=== PATIENT | male | born 1990 | race Two or more races ===

== ENCOUNTER → 2023-01-20 09:09 | Outpatient (BNVA) | payer OTHER, SELFPAY | PROVIDERS: PCP Internal Medicine; Visit Provider Physician Assistant Surgical ==

== ENCOUNTER 2023-02-18 11:04 | Outpatient (REF) | payer OTHER, SELFPAY ==
[2023-02-18 12:35] LABS: MANUAL DIFF FLAG NO
[2023-02-18 12:42] LABS: Basophils Percent Auto 0.2 % (0-2); Eosinophils Percent Auto 0.2 % (0-4); Hematocrit 39.9 % (42.0-52.0); Hemoglobin 13.7 g/dl (14.0-18.0); Imm Gran Abs Auto 0.08 X10*3/uL (0.00-0.03); Imm Gran Pct Auto 1.3 % (0.0-0.4); Lymphocytes Absolute Auto 1.8 X10*3/uL (1.2-4.9); Lymphocytes Percent Auto 28.3 % (20-40); Mean Corpuscular HGB Conc 34.3 g/dl (31.0-36.0); Mean Corpuscular Hemoglobin 31.4 pg (27.0-33.0); Mean Corpuscular Volume 91.3 fL (80.0-98.0); Mean Platelet Volume 10.3 fL (9.4-12.4); Monocytes Absolute Auto 0.5 X10*3/uL (0.1-1.2); Monocytes Percent Auto 7.4 % (2-11); Neutrophils Percent Auto 62.6 % (45-73); Platelet Count 229 X10*3/uL (160-400); Red Blood Count 4.37 X10*6/uL (4.60-5.80); Red Cell Distribution Width 12.4 % (11.0-16.0); White Blood Count 6.4 X10*3/uL (4.8-10.8)
[2023-02-18 13:00] LABS: Estimated Average Glucose 117 mg/dL; Hemoglobin A1c % 5.7 %
[2023-02-18 13:43] LABS: Alanine Aminotransferase 149 U/L (0-40); Albumin Level 4.6 g/dL (3.5-5.0); Alkaline Phosphatase 74 U/L (39-117); Anion Gap 10 (12-20); Aspartate Amino Transferase 86 U/L (5-37); Bilirubin Total 0.6 mg/dL (0.0-1.0); Blood Urea Nitrogen 8 mg/dL (9-16); C Reactive Protein 1.11 mg/dL (< or = 0.50); Calcium 9.9 mg/dL (8.4-10.2); Carbon Dioxide 30 mmol/L (22-29); Chloride 102 mmol/L (96-108); Cholesterol 213 mg/dL; Estimated Glomerular Filt Rate > 60; Glucose Random 103 mg/dL (60-115); HDL Cholesterol 37 mg/dL; Iron 111 mcg/dL (45-160); LDL Cholesterol Calculated 133 mg/dl; Percent Iron Saturation 30 % (15-50); Potassium 4.2 mmol/L (3.3-5.1); Sodium 138 mmol/L (135-145); Total Iron Binding Capacity 368 mcg/dL (228-428); Total Protein 8.1 g/dL (6.5-8.0); Triglycerides 219 mg/dL; Unsaturated Iron Binding 257 ug/dL
[2023-02-18 13:52] LABS: Ferritin 224 ng/mL (20-250); Insulin 27 uU/mL (2-29); Vitamin D 25-OH Total 18.7 ng/mL (>30)
[2023-02-18 14:03] LABS: Folate 14.5 ng/mL (> or = 4.0); Vitamin B12 631 pg/mL (200-900)
[2023-02-18 14:26] LABS: Free T4 (Free Thyroxine) 1.17 ng/dL (0.71-1.85)
[2023-02-22 19:13] LABS: Zinc 81 mcg/dL (60-130)
[2023-02-23 10:28] LABS: Vitamin B1 11 nmol/L (8-30)
[2023-02-24 14:58] LABS: Calcium (PTHI) 9.5 mg/dL (8.6-10.3); PTHI 75 pg/mL (16-77)
[2023-02-26 04:08] LABS: Vitamin A 47 mcg/dL (38-98)
== END 2023-02-18 11:05 | disposition home or self-care (01) ==
LOC: HO.LAB 11:04
PROVIDERS: PCP Internal Medicine; Visit Provider Physician Assistant Surgical
DX: E66.01 Morbid (severe) obesity due to excess calories (principal); Z71.3 Dietary counseling and surveillance; Z87.891 Personal history of nicotine dependence
CPT/HCPCS: 36415; 80053; 80061; 82306; 82607; 82728; 82746; 83036; 83525; 83540; 83970; 84425; 84439; 84443; 84590; 84630; 85025; 86140; 99202

== ENCOUNTER 2023-02-18 11:04 | Outpatient (AMB) | payer OTHER, SELFPAY ==
--- NOTE | 2023-02-18 11:05 | A.OFFVIS_ITS ---
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 He heard about the program on the internet. His goal is to lose weight and achieve a healthy lifestyle as well as to improve, if not resolve, obesity related medical conditions, including yaneth. He reports first being concerned about his weight 2 years ago, highest weight to date was 245. Current weight is 245.2 with a BMI of 42.1. He has tried multiple methods of weight loss including fad diets, exercise without permanent results. He lives with and kids. 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 He wakes at:?7 am, and goes to bed at?1130 pm. Dinner is at 5 pm. Breakfast: skip or toast, eggs, or sandwich or cereal (apple jacks or fruity jesus manuel w 2 % milk) AM snack: skip Lunch: sandwich, ham/cheese/salami, fast food PM snack: fruit, chips Dinner: rice beans, chicken, pork After dinner: chips, yogurt Other snacks: cookies Liquids: 96 oz water, 40 oz coke 4 days per week, 8 oz OJ daily Alcohol/marijuana/tobacco intake: none (8.5 years clean, previously opiate addiction) Exercise: none, [employer] gym membership GERD score: 22 RADHA score: 0 ESS score: 12 QOL score: 70 PFSH Surgical History No history of previous surgery Family History Mother Thyroid condition Father No problems noted. Brother No problems noted. Sister No problems noted. Sister No problems noted. Sister No problems noted. Sister No problems noted. Son No problems noted. Son No problems noted. Son No problems noted. Daughter No problems noted. Social History Alcohol intake: never Patient Tobacco Use Status: Former Tobacco user Review of Systems Const All systems reviewed & are unremarkable except as noted in HPI and below Physical Exam Const General: cooperative, healthy appearing and no acute distress Orientation/consciousness: patient oriented x3 HEENT Head: Yes normal to inspection Ears: hearing grossly normal bilaterally General nose exam: Normal external nose present Face and sinus: Yes normal facial exam Eyes General: appearance normal, both eyes and all related structures Resp Effort & Inspection: normal respiratory effort Auscultation: clear to auscultation bilaterally Cardio Rate: regular rate Rhythm: regular rhythm Heart sounds: S1 normal heart sound present and S2 normal heart sound present GI Inspection: Yes normal to inspection, No distended and Yes obesity Palpation (GI): Soft to palpation, nontender and no guarding Auscultation: normal bowel sounds Skin General skin exam: no rashes or lesions noted Neuro General: patient oriented x3 Extrem General: No edema Psych Appearance: grossly normal Mental Status: mental status grossly normal Speech and movement: Normal speech and movement present Affect: normal affect Attitude: cooperative Assessment & Plan Assessment & Plan (1) Morbid obesity: Code(s): E66.01 - Morbid (severe) obesity due to excess calories Plan: This is a?32 yo male who will start our SWL program to prepare for bariatric surgery.? Blood work, h pylori , CXR, ECG, Abd US and UGI have been ordered. He is being scheduled for RD and BH initial consultations. He will start SWL classes and watch the first three videos before his next appointment. ? Adequate sleep of 7-8 hours per night discussed, awakening at 7 am and going to bed at 1130 pm ? Purchase body composition analyzer scale (Sheri jo or Evelia recommended) and check weight weekly. The best time to do this is first thing in the morning after going to the bathroom. 1. Nutritional counseling: Be sure to careful read the number of scoops per shake Start with 2 Premier Protein shakes ([employer], [employer], [employer]), (1 scoop in 8 oz low fat unsweetened almond milk each) First shake at 8am-10am, Second shake at 11am-1pm 1 protein bar (Zone Perfect bars at [employer], [employer], or [employer]) at 2pm-4pm. Dinner at 5pm (8 forks of protein and 8 forks of salad/vegetables). Meal to include lean meat (beef, fish, pork, turkey, chicken), cooked vegetables or a salad with olive oil and/or fruits (berries, pears, apples, kiwi). Avoid salt, breads, potatoes, rice, pasta, desserts. Another bar at 8pm-10pm. Try to drink 64 oz of water daily and avoid soda and juices. ?2. Each shake would be drunk slowly, like coffee in a period of 2 hours. ?3. Cut each bar in 4 pieces and eat each piece in 30 min ?to make each bar last 2 hours. ?4. I emphasized the importance of measuring accurately the food portion and measure it carefully when serving the food on the plate ?5. The meal portions include 8 full-size forks of meat and 8 full-size forks of salad. You always eat the meat portion but you can replace up to half of the forks of salad/vegetables with rice, potatoes or pasta, or a fruit ?if you like. The less you do it the better weight loss will be. ?6. One full-size fork is what can be scooped on the fork without falling aside and not what can be bit with the fork. Use regular forks like those you find in a typical restaurant. ?7.? Please send me weight measurements as soon as possible and then once a week. Always include your diet and exercise plan. Alternatively come weekly at the office for weight checks and send me the measurements. ?8. Exercise counseling: Begin by watching a stretching for beginners video. Start slowly and begin to stretch your muscles. You should do this before and after each exercise session to prevent injury. Please join [employer] gym near your home. Ask the internal audit senior manager or one of the trainers how to use the machines if you are unfamiliar with them. Start elliptical with a resistance of 2. Incre ase resistance by 1 every 3 min to your most comfortable resistance with a max resistance of 8. Reduce the resistance by 1 every 3 minutes back down to 2 and repeat cycles for 300 calories. Alternatively, start treadmill with a speed of 3.0 and incline of 0, increasing incline by 1 every 3 minutes to the highest comfortable level (max 6 for now) then decrease in the same fashion. Repeat process to a goal of 300 calories. Goal of 2000 calories burned or more weekly. You may also consider use of the stationary bike. The easiest would be to chose the fat-burn or interval training program on the machine and do this until you reach the 300 calorie goal. Alternatively, you can manually adjust the resistance in a similar fashion as mentioned above, (resistance of 2-8 with a goal speed of 12 mph). Tracking calories is essential. 9. Alternatively start walking outside daily, tracking calories with a goal of 300 calories per day, daily. You can download the lanre [employer]oomay which can track your time, distance and calories while walking outside. You press start in the lanre when you start and then stop when you are finished. 10.? It is important to communicate by text weekly 11. Please get labs, EKG and chest X-Ray within 1 week. 12. Discussed and answered all questions regarding?obtained consent to participate in the [facility]?Registry. 13. Please follow the diet plan exactly, without any change. If you do not like something about the plan or you feel hungry, you need to communicate with me so I can help you revise the plan. You should not change the plan yourself. Text me at [phone] 14. Goal is to lose at least 12 pounds in the first month 15. Goal is to lose 10% of your weight before surgery, which is about 24 lbs. Ultimate weight goal: 221 lbs before surgery Patient is morbidly obese and is not considered stable at this time.?I spent a total of 70 minutes reviewing/updating records, examining the patient and counseling the patient on weight management as detailed above. Orders: Orders 2 Vitamin B12 and Folate Today E66.01 - Morbid (severe) obesity due to excess calories Comprehensive Met. Panel Today E66.01 - Morbid (severe) obesity due to excess calories C Reactive Protein Today E66.01 - Morbid (severe) obesity due to excess calories Ferritin Today E66.01 - Morbid (severe) obesity due to excess calories Hemoglobin A1c Today E66.01 - Morbid (severe) obesity due to excess calories Insulin Today E66.01 - Morbid (severe) obesity due to excess calories IRON PROFILE Today E66.01 - Morbid (severe) obesity due to excess calories Lipid Panel Today E66.01 - Morbid (severe) obesity due to excess calories PTHI Today E66.01 - Morbid (severe) obesity due to excess calories TSH reflex Free T4 Today E66.01 - Morbid (severe) obesity due to excess calories Vitamin A Today E66.01 - Morbid (severe) obesity due to excess calories Vitamin B1 Today E66.01 - Morbid (severe) obesity due to excess calories Vitamin D 25-OH Total Today E66.01 - Morbid (severe) obesity due to excess calories Zinc Today E66.01 - Morbid (severe) obesity due to excess calories ECG 12 lead EKG Today E66.01 - Morbid (severe) obesity due to excess calories FL upper GI w air Today E66.01 - Morbid (severe) obesity due to excess calories Complete Blood Count Auto Diff Today E66.01 - Morbid (severe) obesity due to excess calories H Pylori Breath Test Today E66.01 - Morbid (severe) obesity due to excess calories US abdomen comp w elastography Today E66.01 - Morbid (severe) obesity due to excess calories XR chest 2V Today E66.01 - Morbid (severe) obesity due to excess calories Referrals Behavioral Health Referral E66.01 - Morbid (severe) obesity due to excess calories Nutrition/Dietitian Referral E66.01 - Morbid (severe) obesity due to excess calories Coding Level of Care Code New Pt Level 5 (11077) Diagnoses Morbid obesity E66.01 Time Spent (min) 70
[2023-02-18 11:11] VITALS: BP 136/79; PULSE 83; TEMP 36.3; O2SAT 96; BMI 42.1
== END 2023-02-18 11:59 | disposition home or self-care (01) ==
PROVIDERS: PCP Internal Medicine; Visit Provider Physician Assistant Surgical
DX: E66.01 Morbid (severe) obesity due to excess calories (principal); Z68.41 Body mass index [BMI] 40.0-44.9, adult
CPT/HCPCS: 99205

== ENCOUNTER → 2023-03-19 08:59 | Outpatient (BNVA) | payer OTHER, SELFPAY | PROVIDERS: PCP Internal Medicine; Visit Provider Dietitian, Registered | DX: E66.01 Morbid (severe) obesity due to excess calories (principal) | CPT/HCPCS: 97802 ==

== ENCOUNTER 2023-03-19 09:02 | Outpatient (AMB) | payer OTHER, SELFPAY ==
--- NOTE | 2023-03-19 09:08 | A.OFFVIS_ITS ---
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 does not have the bars yet. breakfast: protein shake - premier 2 scoops in almond milk brown rice or goes to [employer]otle (rice, chicken, lettuce, tomato, sour cream, avocado) or whatever cooks dinner: whatever cooks - small portion Completely gave up soda and juice, now drinks Crystal light Exercise: none, is interested in getting a gym membership Online classes: None. Patient reports he lost all of the papers that he was provided at his 1st appointment Previous weight loss methods attempted tried to lose weight on his own but always went back to old habits Dietary counseling reduction Who buys your food spouse Who prepares/cooks your food spouse Meal frequency regular: breakfast (pancakes, toast butter, OJ), lunch (sandwich, grilled cheese ham and cheese ), dinner and snacks Lifestyle Eating out 4 or more times/week Food frequency Fruit: daily, Vegetables: never (lettuce, tomato, cucumbers, broccoli), Grains/pasta/breads/cereal (carbs): daily, Meats/poultry/fish (protein): daily (chicken, beef, salmon - doesn't know how to deep fat fry cook ), Soda: daily (6-8 cans coke) and Juice: several times weekly Diagnosis Nutrition problem #1 overweight/obesity As related to (etiology) #1 excess energy intake and physical inactivity As evidenced by (sign/symptom) #1 high BMI Monitoring/Goals Nutrition problem monitoring total energy intake, level of knowledge/skill, total PRO intake, total CHO intake and weight Outcome progress not met Learning/Education Readiness to learn good Stages of change contemplation Educational materials provided Yes Most Recent Diabetes Results: Cholesterol 213 mg/dL 02/18/23 HDL Cholesterol 37 mg/dL 02/18/23 Triglycerides 219 mg/dL 02/18/23 Creatinine 0.75 mg/dL (0.5-1.4) 02/18/23 Blood Urea Nitrogen 8 mg/dL (9-16) L 02/18/23 Sodium 138 mmol/L (135-145) 02/18/23 Potassium 4.2 mmol/L (3.3-5.1) 02/18/23 Chloride 102 mmol/L (96-108) 02/18/23 Carbon Dioxide 30 mmol/L (22-29) H 02/18/23 Calcium 9.9 mg/dL (8.4-10.2) 02/18/23 AST 86 U/L (5-37) H 02/18/23 ALT 149 U/L (0-40) H 02/18/23 Total Protein 8.1 g/dL (6.5-8.0) H 02/18/23 Albumin 4.6 g/dL (3.5-5.0) 02/18/23 PFSH Surgical History No history of previous surgery Family History Mother Thyroid condition Father No problems noted. Brother No problems noted. Sister No problems noted. Sister No problems noted. Sister No problems noted. Sister No problems noted. Son No problems noted. Son No problems noted. Son No problems noted. Daughter No problems noted. Social History Alcohol intake: never Patient Tobacco Use Status: Former Tobacco user Assessment & Plan Assessment & Plan (1) Morbid obesity: Code(s): E66.01 - Morbid (severe) obesity due to excess calories Patient Instructions: Patient has made some changes, but is not consistent with anything yet. He will refer back to [facility]'s original nutrition plan. He plans to purchase the protein bars today. I provided educational handouts via e-mail and protein bar list. Will begin a consistent exercise routine. Follow-up after completing online classes 04/15 at 10:30am video Telehealth Telehealth Location of provider rendering services: practice address Location of patient: address on file Patient Identification confirmed using: Name, : Yes Telehealth method: video Patient verbally consented to treatment: Yes Patient verbally consented to billing insurance company: Yes Patient informed of any privacy concerns related to visit: Yes Minutes spent on Phone/Video with Pt.: 30 Coding Level of Care Code Nutr Indiv Intake (02048) Diagnoses Morbid obesity E66.01 Time Spent (min) 30
== END 2023-03-19 09:58 | disposition home or self-care (01) ==
PROVIDERS: PCP Internal Medicine; Visit Provider Dietitian, Registered
DX: E66.01 Morbid (severe) obesity due to excess calories (principal)

== ENCOUNTER → 2023-04-15 11:57 | Outpatient (BNVA) | payer OTHER, SELFPAY | PROVIDERS: PCP Internal Medicine; Visit Provider Dietitian, Registered | DX: E66.9 Obesity, unspecified (principal); Z68.39 Body mass index [BMI] 39.0-39.9, adult; Z71.3 Dietary counseling and surveillance | CPT/HCPCS: 97803 ==